=== PATIENT | male | born 1990 | race Asian ===

== ENCOUNTER 2016-07-18 12:55 | Emergency (ER) | payer SELFPAY ==
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
[2016-07-18 15:24] VITALS: BP 115/80
== END 2016-07-18 15:25 | disposition home or self-care (01) ==
LOC: ED 12:55
DX: S80.02XA Contusion of left knee, initial encounter (principal); M54.9 Dorsalgia, unspecified; Z04.1 Encounter for examination and observation following transport accident; V49.9XXA Car occupant (driver) (passenger) injured in unspecified traffic accident, initial encounter; Y93.9 Activity, unspecified; Y92.9 Unspecified place or not applicable; Y99.9 Unspecified external cause status
CPT/HCPCS: 71250; 72125; 72128; 99282